=== PATIENT | male | born 1945 | race Caucasian/White ===

== ENCOUNTER → 2016-10-25 | Outpatient (CLI) | payer MEDICARE ==
[~2016-10-25] MED LIST: ASPI81TA11 PO; CENTTAB9 PO; FURO1TAB93 PO; FURO40TA PO; GABA300C3 PO; GABA300C5 PO; METO100T PO; MULTTAB68 PO; PANT40TA3 PO; PROT40TA PO; TAMS0.4C4 PO; VIAG50TA PO; Z.0.OXYGEN INH
--- NOTE | 2016-10-27 09:38 | RSPPFT ---
DATE OF PROCEDURE: 10/25/16 COMMENTS: Spirometry with FVC of 2.1 predicted 4.6, FEV1 of 1.6 predicted 3.0, FEV1/FVC ratio at 76% predicted 66%. Lung volumes show air trapping with RV at 4.5 predicted 2.7. DLCO is 69% of predicted. IMPRESSION: On the basis of the above, patient has an obstructive lung defect with air trapping.
== END ==
LOC: HRSP 12:42
PROVIDERS: ATTEND Internal Medicine Pulmonary Disease
DX: R06.02 Shortness of breath (principal)
CPT/HCPCS: 94060; 94620; 94726; 94729

== ENCOUNTER → 2017-03-29 | Day surgery (SDC) | payer MEDICARE ==
[~2017-03-29] VITALS: Ht 185.4 cm; Wt 168.9 kg
[~2017-03-29] MED LIST changes: +BACITRACIN TOP OINT 15 GM TUBE ONE; +BUPIVACAINE HCL PF 0.25% 30 ML VIAL ONE; +CHLORHEXIDINE GLUCONATE 2 % 1 PACK (2 CLOTHS) TOPICAL PRN; +INSULIN HUMAN REGULAR 1,000 UNITS/10 ML VIAL SQ PRN; +LACTATED RINGER'S 1000 ML IV PRN; +METOPROLOL TARTRATE 25 MG TAB PO PRN; +MIDAZOLAM HCL 5 MG/5 ML VIAL ONE; +POVIDONE IODINE 5% (ANTISEPSIS KIT) 4 APPLICATIONS EACH NARE PRN; +SODIUM CHLORID 0.9% 500 ML IV PRN; +ceFAZolin 2 GM PREMIX 50 ML IV SCH; +fentaNYL CITRATE 250 MCG/5 ML AMP ONE; +oxyCODONE/ACETAMINOPHEN 5 MG/325 MG TAB PO PRN
[2017-03-29 12:02] VITALS: BP 143/85; PULSE 83; RESP 24; TEMP 98.2; O2SAT 95
[2017-03-29 15:45] VITALS: BP 152/94; PULSE 91; RESP 18; TEMP 97.9; O2SAT 95
--- NOTE | 2017-04-02 07:47 | MP ---
cc: ANNETTE BEAULIEU MD DATE OF SURGERY: 03/29/2017. PREOPERATIVE DIAGNOSIS: Phimosis. POSTOPERATIVE DIAGNOSIS: Phimosis. OPERATION: Circumcision. SURGEON: Annette Beaulieu MD. PERTINENT FINDINGS: 1. Significant phimosis noted. 2. Successful circumcision. INDICATIONS FOR THE PROCEDURE / HISTORY OF PRESENT ILLNESS: Elías Lares is a 71-year-old obese male who presents for treatment with circumcision due to significant phimosis with painful erections. The patient has significant past medical history of COPD and high blood pressure as well as morbid obesity for which the procedure was required to be done in the hospital setting. DESCRIPTION OF THE PROCEDURE IN DETAIL: After prior informed consent was obtained, the patient was brought to the operating room and remained supine on the operating room table. The patient was then prepped and draped in the standard sterile fashion. After a proper time out was completed, the penis was then blocked using 0.25% Marcaine with 20 cc as a dorsal penile block. Following this, another 10 cc was administered in a ring block around the patient's penis. At this point, the foreskin was identified to be quite phimotic and therefore a clamp was placed in the dorsal aspect. After adequate clamping, the scissors was used to create a dorsal slit. After a dorsal slit was created, the head of the penis glans was brought through the foreskin. A stitch was then made for retraction. At this point, proximal portions of the penile shaft skin were marked and incision was made with a #15 blade. Careful dissection was carried out to remove the foreskin. At this point, penile shaft hemostasis was ensured. Using 3-0 chromic stitches, the distal and proximal ends of the skin were then brought together. This appeared to be coming together well with complete exposure of the glans and minimal scrotalization to the ventral aspect of the penis. The patient tolerated the procedure well. There were no complications. The incision was then placed with Bacitracin and Xeroform gauze around it. Kerlix was then applied around with Coban. The patient was then taken to the post-anesthesia care unit in good and stable condition. The patient tolerated the procedure well and there were no complications. DISPOSITION: The patient will be discharged home with follow up in clinic in one to two weeks. His dressings may be removed in 24 to 48 hours. Fredy Waters/SALOMÓN /3:20 PM /7:50 AM OLLIE
== END | disposition home or self-care (01) ==
LOC: HSDC 11:06
PROVIDERS: ATTEND Urology
DX: N47.1 Phimosis (principal); I10 Essential (primary) hypertension; J44.9 Chronic obstructive pulmonary disease, unspecified; K21.9 Gastro-esophageal reflux disease without esophagitis; I48.91 Unspecified atrial fibrillation; E66.01 Morbid (severe) obesity due to excess calories; Z68.42 Body mass index [BMI] 45.0-49.9, adult; Z79.82 Long term (current) use of aspirin
CPT/HCPCS: 54150; J0690; J3010; J7120; J2250

== ENCOUNTER 2018-02-15 14:42 | Inpatient (IN) | payer OTHER, MEDICARE ==
[2018-02-15] MEDS ORDERED: SODIUM CHLORIDE 0.9% FLUSH 10 ML FLUSH IVF (15:30)
[2018-02-15 16:22] LABS: APTT (PATIENT) 28.7 SEC (24.3-30.1); INTERNATIONAL NORMALIZED RATIO 1.2 RATIO; PROTHROMBIN TIME - PATIENT 12.3 SEC (9.8-11.6)
[2018-02-15 16:30] LABS: LACTIC ACID SEPSIS PROTOCOL 2.1 mmol/L (0.4-2.0)
[2018-02-15 16:36] LABS: ALBUMIN 3.2 GM/DL (3.4-5.0); ANION GAP 8 MEQ/L (5-15); AST (GOT) 14 U/L (15-37); BICARBONATE 34.5 MEQ/L (21.0-32.0); BLOOD UREA NITROGEN 10 MG/DL (7-18); CALCIUM 8.6 MG/DL (8.5-10.1); CHLORIDE 99 MEQ/L (98-107); CREATININE 0.74 MG/DL (0.60-1.30); GLOMERULAR FILTRATION RATE 104 ML/MIN (>89); GLUCOSE,RANDOM 90 MG/DL (74-106); POTASSIUM 3.9 MEQ/L (3.5-5.1); SODIUM (NA) 141 MEQ/L (136-145)
[2018-02-15 16:37] LABS: AUTOMATED NEUTROPHIL # 5.5 TH/MM3 (1.8-7.7); BASOPHIL # 0.1 TH/MM3 (0-0.2); BASOPHIL % 0.8 % (0.0-2.0); EOSINOPHIL # 0.3 TH/MM3 (0-0.4); EOSINOPHIL % 4.1 % (0.0-4.0); HEMATOCRIT 40.6 % (39.0-51.0); HEMO FLAGS DIFF FINAL; HEMOGLOBIN 13.5 GM/DL (13.0-17.0); LYMPH % 17.4 % (9.0-44.0); LYMPHOCYTE # 1.4 TH/MM3 (1.0-4.8); MEAN CELL VOLUME 104.5 FL (80.0-100.0); MEAN CORPUSCULAR HEMOGLOBIN 34.7 PG (27.0-34.0); MEAN CORPUSCULAR HGB CONC 33.2 % (32.0-36.0); MEAN PLATELET VOLUME 9.3 FL (7.0-11.0); MONO % 10.9 % (0.0-8.0); MONOCYTE # 0.9 TH/MM3 (0-0.9); NEUT % 66.8 % (16.0-70.0); PLATELET COUNT 177 TH/MM3 (150-450); RED BLOOD COUNT 3.88 MIL/MM3 (4.50-5.90); RED CELL DISTRIBUTION WIDTH 13.7 % (11.6-17.2); WHITE BLOOD COUNT 8.2 TH/MM3 (4.0-11.0)
[2018-02-15 16:41] LABS: ALKALINE PHOSPHATASE 82 U/L (45-117); ALT (GPT) 18 U/L (12-78); TOTAL BILIRUBIN ADULT 0.8 MG/DL (0.2-1.0); TOTAL PROTEIN 6.4 GM/DL (6.4-8.2); TROPONIN I 0.03 NG/ML (0.02-0.05)
[2018-02-15 16:43] LABS: CREATINE KINASE 58 U/L (39-308)
[2018-02-15 17:33] LABS: B-TYPE NATRIURETIC PEPTIDE 239 PG/ML (0-100)
[2018-02-15 18:03] LABS: LACTIC ACID GHOST NOT REPORTABLE
[2018-02-15 18:40] LABS: LACTIC ACID SEPSIS REPEAT 1.7 mmol/L (0.4-2.0)
[2018-02-15] MEDS: IOHEXOL 350 MG/ML 10 ML VIAL (for RAD DIAG) IVCONTRAST (18:55)
[2018-02-15] MEDS: FUROSEMIDE 40 MG/4 ML VIAL IV PUSH (19:05)
[2018-02-15 19:50] LABS: BLOOD, URINE MOD (NEG); GLUCOSE,URINE NEG (NEG); KETONE, URINE NEG (NEG); NITRITE,URINE NEG (NEG); URINE COLOR YELLOW (YELLW/STRAW); URINE LEUKOCYTE ESTERASE NEG (NEG)
[2018-02-15 19:59] LABS: BILIRUBIN, URINE NEG (NEG)
[2018-02-15 20:01] LABS: MUCUS URINE FEW /lpf (OCC)
[2018-02-15 20:03] LABS: COMMENT (UR) CATH-CULT NOT IND; CULTURE IF INDICATED CATH CULTURE NOT IND
[2018-02-15] MEDS: PANTOPRAZOLE SODIUM 40 MG VIAL IV PUSH (20:27)
[2018-02-15] MEDS: oxyCODONE/ACETAMINOPHEN 5 MG/325 MG TAB PO (20:27)
[2018-02-15] MEDS ORDERED: SENNOSIDES 8.6 MG TAB PO (22:00)
[2018-02-15] MEDS ORDERED: LACTULOSE SYRUP 20 GM/30 ML CUP PO (22:00)
[2018-02-15] MEDS ORDERED: ACETAMINOPHEN 325 MG TAB PO (22:00)
[2018-02-15] MEDS ORDERED: BISACODYL 10 MG SUPP RECTAL (22:00)
[2018-02-15] MEDS ORDERED: MAGNESIUM HYDROXIDE SUSP 30 ML CUP PO (22:00)
[2018-02-15] MEDS ORDERED: ONDANSETRON HCL 4 MG/2 ML VIAL IVP (22:00)
[2018-02-15] MEDS ORDERED: NALOXONE HCL 0.4 MG/ML AMP IV PUSH (22:00)
[2018-02-15] MEDS ORDERED: LORazepam 2 MG TAB PO (23:30)
[2018-02-15] MEDS ORDERED: FLUMAZENIL 0.5 MG/5 ML VIAL IV PUSH (23:30)
[2018-02-15] MEDS ORDERED: LORazepam 1 MG TAB PO (23:30)
[2018-02-15] MEDS ORDERED: LORazepam 2 MG/ML VIAL IV PUSH ×4 (23:30)
[2018-02-15] MEDS ORDERED: PILL SPLITTER OTHER (23:45)
[2018-02-15] MEDS ORDERED: RESP: ALBUTEROL 2.5 MG/IPRATROPIUM 0.5 MG NEB (PRN) NEB (23:45)
[2018-02-16 00:41] LABS: D-DIMER 0.83 MG/L FEU (0.00-0.50)
[2018-02-16] MEDS: ENOXAPARIN SODIUM 40 MG/0.4 ML SYRINGE SQ ×2 (02:21→20:24)
[2018-02-16 07:56] LABS: AUTOMATED NEUTROPHIL # 5.3 TH/MM3 (1.8-7.7); BASOPHIL % 0.6 % (0.0-2.0); EOSINOPHIL # 0.4 TH/MM3 (0-0.4); EOSINOPHIL % 5.4 % (0.0-4.0); HEMATOCRIT 38.7 % (39.0-51.0); HEMO FLAGS DIFF FINAL; HEMOGLOBIN 12.7 GM/DL (13.0-17.0); LYMPH % 14.7 % (9.0-44.0); LYMPHOCYTE # 1.2 TH/MM3 (1.0-4.8); MEAN CELL VOLUME 105.1 FL (80.0-100.0); MEAN CORPUSCULAR HEMOGLOBIN 34.6 PG (27.0-34.0); MEAN CORPUSCULAR HGB CONC 32.9 % (32.0-36.0); MEAN PLATELET VOLUME 8.9 FL (7.0-11.0); MONO % 10.9 % (0.0-8.0); MONOCYTE # 0.9 TH/MM3 (0-0.9); NEUT % 68.4 % (16.0-70.0); PLATELET COUNT 152 TH/MM3 (150-450); RED BLOOD COUNT 3.68 MIL/MM3 (4.50-5.90); RED CELL DISTRIBUTION WIDTH 13.7 % (11.6-17.2); WHITE BLOOD COUNT 7.8 TH/MM3 (4.0-11.0)
[2018-02-16 08:26] LABS: ANION GAP 8 MEQ/L (5-15); BICARBONATE 33.3 MEQ/L (21.0-32.0); BLOOD UREA NITROGEN 13 MG/DL (7-18); CALCIUM 8.2 MG/DL (8.5-10.1); CHLORIDE 102 MEQ/L (98-107); GLOMERULAR FILTRATION RATE 111 ML/MIN (>89); GLUCOSE,RANDOM 100 MG/DL (74-106); POTASSIUM 3.9 MEQ/L (3.5-5.1); SODIUM (NA) 143 MEQ/L (136-145)
[2018-02-16] MEDS ORDERED: METOPROLOL TARTRATE 25 MG TAB PO ×2 (09:00→21:00)
[2018-02-16] MEDS: FUROSEMIDE 40 MG/4 ML VIAL IV PUSH (09:00)
[2018-02-16] MEDS ORDERED: FUROSEMIDE 40 MG TAB PO (09:00)
[2018-02-16] MEDS: ASPIRIN EC 81 MG TABEC PO (10:22)
[2018-02-16] MEDS: SODIUM CHLORIDE 0.9% FLUSH 10 ML FLUSH IV FLUSH ×2 (10:23→20:23)
[2018-02-16] MEDS: MULTIVITAMIN TAB PO (10:23)
[2018-02-16] MEDS: GABAPENTIN 300 MG CAP PO (10:23)
[2018-02-16] MEDS: METOPROLOL TARTRATE 25 MG TAB PO ×2 (10:58→20:23)
[2018-02-16] MEDS: RESP: ALBUTEROL 2.5 MG/IPRATROPIUM 0.5 MG NEB (SCH) NEB ×3 (12:57→19:39)
[2018-02-16] MEDS: MORPHINE SULFATE 4 MG/ML INJ IV PUSH ×2 (16:01→22:10)
[2018-02-16] MEDS: NYSTATIN 100,000 U/GM PWD 15 GM BTL TOPICAL ×3 (16:01→20:24)
[2018-02-16] MEDS: ALBUMIN 25% INJ 100 ML IV (20:21)
[2018-02-16] MEDS: TAMSULOSIN HCL 0.4 MG CAP PO (20:23)
[2018-02-16] MEDS: FUROSEMIDE 20 MG/2 ML VIAL IV PUSH (20:37)
[2018-02-16] MEDS ORDERED: NYSTATIN 100,000 UNIT/GM CREAM 15 GM TOPICAL (21:00)
[2018-02-17] MEDS: MORPHINE SULFATE 4 MG/ML INJ IV PUSH ×2 (03:26→14:55)
[2018-02-17] MEDS: SODIUM CHLORIDE 0.9% FLUSH 10 ML FLUSH IV FLUSH ×3 (03:26→22:20)
[2018-02-17] MEDS: RESP: ALBUTEROL 2.5 MG/IPRATROPIUM 0.5 MG NEB (SCH) NEB ×4 (04:24→20:49)
[2018-02-17] MEDS: NYSTATIN 100,000 U/GM PWD 15 GM BTL TOPICAL ×3 (06:00→22:20)
[2018-02-17] MEDS: ALBUMIN 25% INJ 100 ML IV ×2 (08:15→17:34)
[2018-02-17] MEDS: MULTIVITAMIN TAB PO (08:15)
[2018-02-17] MEDS: ASPIRIN EC 81 MG TABEC PO (08:15)
[2018-02-17] MEDS: GABAPENTIN 300 MG CAP PO (08:15)
[2018-02-17] MEDS: FUROSEMIDE 20 MG/2 ML VIAL IV PUSH ×2 (09:18→18:17)
[2018-02-17] MEDS: METOPROLOL TARTRATE 25 MG TAB PO ×2 (09:24→22:20)
[2018-02-17] MEDS: methylPREDNISolone SOD SUCC 125 MG/2 ML VIAL IV PUSH ×3 (10:10→22:46)
[2018-02-17 10:44] LABS: AUTOMATED NEUTROPHIL # 6.4 TH/MM3 (1.8-7.7); BASOPHIL % 0.6 % (0.0-2.0); EOSINOPHIL # 0.4 TH/MM3 (0-0.4); EOSINOPHIL % 4.9 % (0.0-4.0); HEMATOCRIT 37.1 % (39.0-51.0); HEMO FLAGS DIFF FINAL; HEMOGLOBIN 12.2 GM/DL (13.0-17.0); LYMPH % 13.8 % (9.0-44.0); LYMPHOCYTE # 1.2 TH/MM3 (1.0-4.8); MEAN CELL VOLUME 105.5 FL (80.0-100.0); MEAN CORPUSCULAR HEMOGLOBIN 34.6 PG (27.0-34.0); MEAN CORPUSCULAR HGB CONC 32.8 % (32.0-36.0); MEAN PLATELET VOLUME 8.9 FL (7.0-11.0); MONO % 7.3 % (0.0-8.0); MONOCYTE # 0.6 TH/MM3 (0-0.9); NEUT % 73.4 % (16.0-70.0); PLATELET COUNT 139 TH/MM3 (150-450); RED BLOOD COUNT 3.52 MIL/MM3 (4.50-5.90); RED CELL DISTRIBUTION WIDTH 13.3 % (11.6-17.2); WHITE BLOOD COUNT 8.7 TH/MM3 (4.0-11.0)
[2018-02-17 11:09] LABS: ANION GAP 4 MEQ/L (5-15); BICARBONATE 36.9 MEQ/L (21.0-32.0); BLOOD UREA NITROGEN 13 MG/DL (7-18); CALCIUM 8.2 MG/DL (8.5-10.1); CHLORIDE 100 MEQ/L (98-107); CREATININE 0.73 MG/DL (0.60-1.30); GLOMERULAR FILTRATION RATE 105 ML/MIN (>89); GLUCOSE,RANDOM 137 MG/DL (74-106); POTASSIUM 3.9 MEQ/L (3.5-5.1); SODIUM (NA) 141 MEQ/L (136-145)
[2018-02-17] MEDS: TAMSULOSIN HCL 0.4 MG CAP PO (22:19)
[2018-02-17] MEDS: ENOXAPARIN SODIUM 40 MG/0.4 ML SYRINGE SQ (22:20)
[2018-02-18] MEDS: RESP: ALBUTEROL 2.5 MG/IPRATROPIUM 0.5 MG NEB (SCH) NEB ×4 (02:44→20:51)
[2018-02-18] MEDS: NYSTATIN 100,000 U/GM PWD 15 GM BTL TOPICAL ×3 (05:37→21:57)
[2018-02-18] MEDS: GABAPENTIN 300 MG CAP PO (08:20)
[2018-02-18] MEDS: MORPHINE SULFATE 4 MG/ML INJ IV PUSH ×4 (08:20→21:57)
[2018-02-18] MEDS: MULTIVITAMIN TAB PO (08:21)
[2018-02-18] MEDS: METOPROLOL TARTRATE 25 MG TAB PO ×2 (08:21→21:55)
[2018-02-18] MEDS: ASPIRIN EC 81 MG TABEC PO (08:21)
[2018-02-18] MEDS: SODIUM CHLORIDE 0.9% FLUSH 10 ML FLUSH IV FLUSH ×2 (08:21→21:57)
[2018-02-18] MEDS: ALBUMIN 25% INJ 100 ML IV ×2 (08:21→17:15)
[2018-02-18 08:54] LABS: ANION GAP 7 MEQ/L (5-15); BICARBONATE 31.5 MEQ/L (21.0-32.0); BLOOD UREA NITROGEN 13 MG/DL (7-18); CALCIUM 8.9 MG/DL (8.5-10.1); CHLORIDE 99 MEQ/L (98-107); CREATININE 0.61 MG/DL (0.60-1.30); GLOMERULAR FILTRATION RATE 130 ML/MIN (>89); GLUCOSE,RANDOM 130 MG/DL (74-106); POTASSIUM 4.2 MEQ/L (3.5-5.1); SODIUM (NA) 137 MEQ/L (136-145)
[2018-02-18] MEDS: FUROSEMIDE 20 MG/2 ML VIAL IV PUSH ×2 (09:33→17:38)
[2018-02-18] MEDS ORDERED: MAGNESIUM HYDROXIDE SUSP 30 ML CUP PO (13:30)
[2018-02-18] MEDS: DOCUSATE SODIUM 100 MG CAP PO ×2 (14:01→21:56)
[2018-02-18] MEDS: TAMSULOSIN HCL 0.4 MG CAP PO (21:55)
[2018-02-18] MEDS: ENOXAPARIN SODIUM 40 MG/0.4 ML SYRINGE SQ (21:57)
[2018-02-19] MEDS: MORPHINE SULFATE 4 MG/ML INJ IV PUSH ×4 (01:07→21:54)
[2018-02-19] MEDS: RESP: ALBUTEROL 2.5 MG/IPRATROPIUM 0.5 MG NEB (SCH) NEB ×4 (03:05→19:48)
[2018-02-19] MEDS: NYSTATIN 100,000 U/GM PWD 15 GM BTL TOPICAL ×3 (05:02→21:54)
[2018-02-19 06:21] LABS: AUTOMATED NEUTROPHIL # 11.9 TH/MM3 (1.8-7.7); BASOPHIL % 0.2 % (0.0-2.0); HEMATOCRIT 37.4 % (39.0-51.0); HEMO FLAGS DIFF FINAL; HEMOGLOBIN 12.3 GM/DL (13.0-17.0); LYMPH % 8.1 % (9.0-44.0); LYMPHOCYTE # 1.1 TH/MM3 (1.0-4.8); MEAN CELL VOLUME 104.2 FL (80.0-100.0); MEAN CORPUSCULAR HEMOGLOBIN 34.3 PG (27.0-34.0); MEAN CORPUSCULAR HGB CONC 32.9 % (32.0-36.0); MEAN PLATELET VOLUME 9.6 FL (7.0-11.0); MONO % 7.4 % (0.0-8.0); NEUT % 84.3 % (16.0-70.0); PLATELET COUNT 146 TH/MM3 (150-450); RED BLOOD COUNT 3.59 MIL/MM3 (4.50-5.90); RED CELL DISTRIBUTION WIDTH 13.5 % (11.6-17.2); WHITE BLOOD COUNT 14.1 TH/MM3 (4.0-11.0)
[2018-02-19 06:39] LABS: ANION GAP 7 MEQ/L (5-15); BICARBONATE 31.9 MEQ/L (21.0-32.0); BLOOD UREA NITROGEN 22 MG/DL (7-18); CALCIUM 8.3 MG/DL (8.5-10.1); CHLORIDE 100 MEQ/L (98-107); CREATININE 0.69 MG/DL (0.60-1.30); GLOMERULAR FILTRATION RATE 112 ML/MIN (>89); GLUCOSE,RANDOM 89 MG/DL (74-106); MAGNESIUM 2.3 MG/DL (1.5-2.5); SODIUM (NA) 139 MEQ/L (136-145)
[2018-02-19 06:40] LABS: POTASSIUM 4.8 MEQ/L (3.5-5.1)
[2018-02-19] MEDS: ALBUMIN 25% INJ 100 ML IV ×2 (08:16→17:06)
[2018-02-19] MEDS: SODIUM CHLORIDE 0.9% FLUSH 10 ML FLUSH IV FLUSH ×2 (08:17→21:48)
[2018-02-19] MEDS: DOCUSATE SODIUM 100 MG CAP PO ×2 (08:57→21:49)
[2018-02-19] MEDS: FUROSEMIDE 20 MG/2 ML VIAL IV PUSH ×2 (08:57→17:29)
[2018-02-19] MEDS: GABAPENTIN 300 MG CAP PO (08:57)
[2018-02-19] MEDS: ASPIRIN EC 81 MG TABEC PO (08:57)
[2018-02-19] MEDS: METOPROLOL TARTRATE 25 MG TAB PO ×2 (08:57→21:49)
[2018-02-19] MEDS: MULTIVITAMIN TAB PO (08:57)
[2018-02-19] MEDS: methylPREDNISolone SOD SUCC 125 MG/2 ML VIAL IV PUSH ×2 (16:54→22:05)
[2018-02-19] MEDS: LORATADINE 10 MG TAB PO (16:58)
[2018-02-19] MEDS: PANTOPRAZOLE SOD 40 MG DELAYED RELEASE TAB PO (16:58)
[2018-02-19] MEDS: TAMSULOSIN HCL 0.4 MG CAP PO (21:49)
[2018-02-19] MEDS: guaiFENesin E.R. 600 MG TAB PO (21:49)
[2018-02-19] MEDS: INSULIN ASPART SUPPLEMENTAL SCALE SQ (21:50)
[2018-02-19] MEDS: ENOXAPARIN SODIUM 40 MG/0.4 ML SYRINGE SQ (21:51)
[2018-02-20] MEDS: RESP: ALBUTEROL 2.5 MG/IPRATROPIUM 0.5 MG NEB (SCH) NEB ×6 (00:04→19:01)
[2018-02-20] MEDS: NYSTATIN 100,000 U/GM PWD 15 GM BTL TOPICAL ×3 (05:01→22:15)
[2018-02-20] MEDS: methylPREDNISolone SOD SUCC 125 MG/2 ML VIAL IV PUSH ×4 (05:01→22:39)
[2018-02-20] MEDS: MORPHINE SULFATE 4 MG/ML INJ IV PUSH (05:01)
[2018-02-20 07:42] LABS: BASOPHIL % 0.1 % (0.0-2.0); HEMATOCRIT 37.5 % (39.0-51.0); HEMO FLAGS DIFF FINAL; HEMOGLOBIN 12.4 GM/DL (13.0-17.0); LYMPHOCYTE # 0.3 TH/MM3 (1.0-4.8); MEAN CELL VOLUME 105.2 FL (80.0-100.0); MEAN CORPUSCULAR HEMOGLOBIN 34.9 PG (27.0-34.0); MEAN CORPUSCULAR HGB CONC 33.2 % (32.0-36.0); MEAN PLATELET VOLUME 9.9 FL (7.0-11.0); MONOCYTE # 0.3 TH/MM3 (0-0.9); NEUT % 92.9 % (16.0-70.0); PLATELET COUNT 135 TH/MM3 (150-450); RED BLOOD COUNT 3.56 MIL/MM3 (4.50-5.90); RED CELL DISTRIBUTION WIDTH 13.4 % (11.6-17.2); WHITE BLOOD COUNT 8.6 TH/MM3 (4.0-11.0)
[2018-02-20 07:50] LABS: ANION GAP 7 MEQ/L (5-15); BICARBONATE 33.7 MEQ/L (21.0-32.0); BLOOD UREA NITROGEN 20 MG/DL (7-18); CALCIUM 8.9 MG/DL (8.5-10.1); CHLORIDE 98 MEQ/L (98-107); CREATININE 0.68 MG/DL (0.60-1.30); GLOMERULAR FILTRATION RATE 114 ML/MIN (>89); GLUCOSE,RANDOM 134 MG/DL (74-106); MAGNESIUM 2.2 MG/DL (1.5-2.5); POTASSIUM 4.2 MEQ/L (3.5-5.1); SODIUM (NA) 139 MEQ/L (136-145)
[2018-02-20] MEDS: INSULIN ASPART SUPPLEMENTAL SCALE SQ ×4 (08:00→22:25)
[2018-02-20] MEDS: guaiFENesin E.R. 600 MG TAB PO ×2 (09:00→22:26)
[2018-02-20] MEDS: PANTOPRAZOLE SOD 40 MG DELAYED RELEASE TAB PO (09:13)
[2018-02-20] MEDS: DOCUSATE SODIUM 100 MG CAP PO ×2 (09:13→22:26)
[2018-02-20] MEDS: LORATADINE 10 MG TAB PO (09:13)
[2018-02-20] MEDS: SODIUM CHLORIDE 0.9% FLUSH 10 ML FLUSH IV FLUSH ×2 (09:13→22:14)
[2018-02-20] MEDS: METOPROLOL TARTRATE 25 MG TAB PO ×2 (09:14→13:15)
[2018-02-20] MEDS: FUROSEMIDE 20 MG TAB PO ×2 (09:14→17:09)
[2018-02-20] MEDS: ASPIRIN EC 81 MG TABEC PO (09:14)
[2018-02-20] MEDS: GABAPENTIN 300 MG CAP PO (09:14)
[2018-02-20] MEDS: MULTIVITAMIN TAB PO (09:15)
[2018-02-20] MEDS: ALBUMIN 25% INJ 100 ML IV (09:25)
[2018-02-20 09:52] LABS: BLOOD GAS BASE EXCESS 8.5 mmol/L (-2-2); BLOOD GAS HCO3 33 mmol/L (22-26); BLOOD GAS METHEMOGLOBIN 0.9 % (0-2); BLOOD GAS O2 HGB SATURATION 90 % (90-100); BLOOD GAS OXYGEN CONTENT 14.9 Vol % (12.0-20.0); BLOOD GAS PCO2 50 mmHg (38-42); BLOOD GAS PO2 65 mmHg (61-120); BLOOD GAS TOTAL HGB 11.8 G/DL (12.0-16.0); TEMP CORR TO 98.6
[2018-02-20 09:53] LABS: CRITICAL VALUE NO; DRAW SITE LT RADIAL; LITER FLOW 4 L/M; NUMBER OF ARTERIAL PUNCTURES 1; OXYGEN DEVICE NASAL CANNULA; STAT NO; ULNAR PULSE PRESENT
[2018-02-20] MEDS: IOHEXOL 350 MG/ML 10 ML VIAL (for RAD DIAG) IVCONTRAST (11:14)
[2018-02-20] MEDS: traMADol HCL 50 MG TAB PO (17:16)
[2018-02-20] MEDS: BUDESONIDE-FORMOTEROL 160/4.5 MCG INHALER INH ×2 (17:17→22:14)
[2018-02-20] MEDS: ENOXAPARIN SODIUM 40 MG/0.4 ML SYRINGE SQ (22:15)
[2018-02-20 22:18] LABS: BLOOD GAS BASE EXCESS 8.2 mmol/L (-2-2); BLOOD GAS CARBOXYHEMOGLOBIN 1.7 % (0-4); BLOOD GAS HCO3 34 mmol/L (22-26); BLOOD GAS METHEMOGLOBIN 0.9 % (0-2); BLOOD GAS O2 HGB SATURATION 94 % (90-100); BLOOD GAS PCO2 67 mmHg (38-42); BLOOD GAS PO2 99 mmHg (61-120); BLOOD GAS TOTAL HGB 12.8 G/DL (12.0-16.0); CRITICAL VALUE YES; TEMP CORR TO 98.6
[2018-02-20 22:19] LABS: DRAW SITE RT RADIAL; FIO2 100 %; LITER FLOW 15 L/M; NUMBER OF ARTERIAL PUNCTURES 1; OXYGEN DEVICE NRB; STAT YES; ULNAR PULSE PRESENT
[2018-02-20] MEDS: TAMSULOSIN HCL 0.4 MG CAP PO (22:26)
[2018-02-20] MEDS: METOPROLOL TARTRATE 50 MG TAB PO (22:26)
[2018-02-20] MEDS: FUROSEMIDE 40 MG/4 ML VIAL IV PUSH (22:38)
[2018-02-20] MEDS: RESP: ALBUTEROL 2.5 MG/IPRATROPIUM 0.5 MG NEB (PRN) NEB (22:38)
[2018-02-21] MEDS: RESP: ALBUTEROL 2.5 MG/IPRATROPIUM 0.5 MG NEB (SCH) NEB ×6 (01:07→20:50)
[2018-02-21 01:48] LABS: BLOOD GAS BASE EXCESS 9.8 mmol/L (-2-2); BLOOD GAS CARBOXYHEMOGLOBIN 1.7 % (0-4); BLOOD GAS HCO3 35 mmol/L (22-26); BLOOD GAS METHEMOGLOBIN 1.1 % (0-2); BLOOD GAS O2 HGB SATURATION 95 % (90-100); BLOOD GAS OXYGEN CONTENT 16.3 Vol % (12.0-20.0); BLOOD GAS PCO2 62 mmHg (38-42); BLOOD GAS PO2 96 mmHg (61-120); BLOOD GAS TOTAL HGB 12.2 G/DL (12.0-16.0); TEMP CORR TO 98.6
[2018-02-21 01:49] LABS: CRITICAL VALUE YES
[2018-02-21 01:51] LABS: DRAW SITE LT RADIAL; FIO2 50 %; NUMBER OF ARTERIAL PUNCTURES 2; OXYGEN DEVICE BIPAP; ULNAR PULSE PRESENT; VENT SETTINGS 15/ 5/50%
[2018-02-21 01:52] LABS: STAT NO
[2018-02-21 04:38] LABS: BLOOD GAS BASE EXCESS 9.7 mmol/L (-2-2); BLOOD GAS CARBOXYHEMOGLOBIN 1.6 % (0-4); BLOOD GAS HCO3 35 mmol/L (22-26); BLOOD GAS METHEMOGLOBIN 0.9 % (0-2); BLOOD GAS O2 HGB SATURATION 90 % (90-100); BLOOD GAS OXYGEN CONTENT 15.6 Vol % (12.0-20.0); BLOOD GAS PCO2 59 mmHg (38-42); BLOOD GAS PO2 69 mmHg (61-120); BLOOD GAS TOTAL HGB 12.3 G/DL (12.0-16.0); TEMP CORR TO 98.6
[2018-02-21 04:39] LABS: CRITICAL VALUE YES; DRAW SITE LT RADIAL; FIO2 50 %; NUMBER OF ARTERIAL PUNCTURES 1; OXYGEN DEVICE BIPAP; STAT NO; ULNAR PULSE PRESENT; VENT SETTINGS 18/5/ 50%
[2018-02-21] MEDS: traMADol HCL 50 MG TAB PO ×2 (05:53→20:07)
[2018-02-21] MEDS: NYSTATIN 100,000 U/GM PWD 15 GM BTL TOPICAL ×3 (05:55→22:00)
[2018-02-21] MEDS: methylPREDNISolone SOD SUCC 125 MG/2 ML VIAL IV PUSH ×2 (05:55→19:52)
[2018-02-21] MEDS: SODIUM CHLORIDE 0.9% FLUSH 10 ML FLUSH IV FLUSH ×3 (05:56→19:53)
[2018-02-21] MEDS: INSULIN ASPART SUPPLEMENTAL SCALE SQ ×4 (08:00→21:00)
[2018-02-21] MEDS: DOCUSATE SODIUM 100 MG CAP PO ×2 (10:14→19:51)
[2018-02-21] MEDS: LORATADINE 10 MG TAB PO (10:14)
[2018-02-21] MEDS: GABAPENTIN 300 MG CAP PO (10:15)
[2018-02-21] MEDS: PANTOPRAZOLE SOD 40 MG DELAYED RELEASE TAB PO (10:15)
[2018-02-21] MEDS: guaiFENesin E.R. 600 MG TAB PO ×2 (10:15→19:51)
[2018-02-21] MEDS: MULTIVITAMIN TAB PO (10:15)
[2018-02-21] MEDS: ASPIRIN EC 81 MG TABEC PO (10:15)
[2018-02-21] MEDS: METOPROLOL TARTRATE 50 MG TAB PO ×2 (10:16→12:43)
[2018-02-21] MEDS: BUDESONIDE-FORMOTEROL 160/4.5 MCG INHALER INH ×2 (10:19→19:53)
[2018-02-21] MEDS: FUROSEMIDE 40 MG/4 ML VIAL IV PUSH ×2 (11:18→17:27)
[2018-02-21] MEDS: MAGNESIUM HYDROXIDE SUSP 30 ML CUP PO (12:45)
[2018-02-21] MEDS: TAMSULOSIN HCL 0.4 MG CAP PO (19:51)
[2018-02-21] MEDS: METOPROLOL TARTRATE 100 MG TAB PO (19:51)
[2018-02-21] MEDS: ENOXAPARIN SODIUM 40 MG/0.4 ML SYRINGE SQ (22:00)
[2018-02-22 05:41] LABS: AUTOMATED NEUTROPHIL # 11.3 TH/MM3 (1.8-7.7); BASOPHIL % 0.1 % (0.0-2.0); HEMATOCRIT 38.7 % (39.0-51.0); HEMO FLAGS DIFF FINAL; HEMOGLOBIN 12.6 GM/DL (13.0-17.0); LYMPH % 4.4 % (9.0-44.0); LYMPHOCYTE # 0.6 TH/MM3 (1.0-4.8); MEAN CORPUSCULAR HEMOGLOBIN 34.3 PG (27.0-34.0); MEAN CORPUSCULAR HGB CONC 32.6 % (32.0-36.0); MEAN PLATELET VOLUME 9.9 FL (7.0-11.0); MONO % 8.4 % (0.0-8.0); MONOCYTE # 1.1 TH/MM3 (0-0.9); NEUT % 87.1 % (16.0-70.0); PLATELET COUNT 159 TH/MM3 (150-450); RED BLOOD COUNT 3.68 MIL/MM3 (4.50-5.90); RED CELL DISTRIBUTION WIDTH 13.6 % (11.6-17.2)
[2018-02-22] MEDS: NYSTATIN 100,000 U/GM PWD 15 GM BTL TOPICAL ×3 (05:43→21:57)
[2018-02-22 06:07] LABS: ANION GAP 5 MEQ/L (5-15); BICARBONATE 38.1 MEQ/L (21.0-32.0); BLOOD UREA NITROGEN 28 MG/DL (7-18); CALCIUM 8.3 MG/DL (8.5-10.1); CHLORIDE 97 MEQ/L (98-107); CREATININE 0.73 MG/DL (0.60-1.30); GLOMERULAR FILTRATION RATE 105 ML/MIN (>89); GLUCOSE,RANDOM 117 MG/DL (74-106); MAGNESIUM 2.5 MG/DL (1.5-2.5); SODIUM (NA) 140 MEQ/L (136-145)
[2018-02-22] MEDS: RESP: ALBUTEROL 2.5 MG/IPRATROPIUM 0.5 MG NEB (SCH) NEB ×2 (07:26→20:00)
[2018-02-22 07:28] LABS: BLOOD GAS BASE EXCESS 12.6 mmol/L (-2-2); BLOOD GAS CARBOXYHEMOGLOBIN 1.7 % (0-4); BLOOD GAS HCO3 39 mmol/L (22-26); BLOOD GAS O2 HGB SATURATION 96 % (90-100); BLOOD GAS OXYGEN CONTENT 16.4 Vol % (12.0-20.0); BLOOD GAS PCO2 72 mmHg (38-42); BLOOD GAS PO2 111 mmHg (61-120); BLOOD GAS TOTAL HGB 12.1 G/DL (12.0-16.0); TEMP CORR TO 98.6
[2018-02-22 07:37] LABS: CRITICAL VALUE YES; OXYGEN DEVICE BiPAP; VENT SETTINGS IPAP 18/EPAP 5
[2018-02-22 07:38] LABS: DRAW SITE RT RADIAL; FIO2 50 %; NUMBER OF ARTERIAL PUNCTURES 1; STAT NO
[2018-02-22] MEDS: INSULIN ASPART SUPPLEMENTAL SCALE SQ ×4 (07:58→21:00)
[2018-02-22] MEDS ORDERED: HEPARIN-NS/PF FLUSH BAG 2,000 ML IV FLUSH (08:34)
[2018-02-22] MEDS ORDERED: MIDAZOLAM HCL 2 MG/2 ML VIAL (08:39)
[2018-02-22] MEDS ORDERED: NITROGLYCERIN INJ 5 ML (08:40)
[2018-02-22] MEDS ORDERED: HEPARIN SODIUM - IV 10,000 UNITS/10 ML VIAL (08:40)
[2018-02-22] MEDS ORDERED: VERAPAMIL HCL 5 MG/2 ML VIAL (08:40)
[2018-02-22] MEDS: MISC INFORMATION XX (10:00)
[2018-02-22] MEDS ORDERED: IOHEXOL 350 MG/ML 100 ML BTL (for Cath Lab) OTHER (10:26)
[2018-02-22] MEDS: GABAPENTIN 300 MG CAP PO (12:46)
[2018-02-22] MEDS: METOPROLOL TARTRATE 100 MG TAB PO ×2 (12:47→21:00)
[2018-02-22] MEDS: guaiFENesin E.R. 600 MG TAB PO ×2 (12:47→21:55)
[2018-02-22] MEDS: LORATADINE 10 MG TAB PO (12:47)
[2018-02-22] MEDS: FUROSEMIDE 40 MG/4 ML VIAL IV PUSH ×2 (12:48→17:08)
[2018-02-22] MEDS: methylPREDNISolone SOD SUCC 125 MG/2 ML VIAL IV PUSH ×2 (12:49→21:55)
[2018-02-22] MEDS: BUDESONIDE-FORMOTEROL 160/4.5 MCG INHALER INH ×2 (12:52→21:56)
[2018-02-22] MEDS: SODIUM CHLORIDE 0.9% FLUSH 10 ML FLUSH IV FLUSH ×2 (12:52→21:56)
[2018-02-22] MEDS: ASPIRIN EC 81 MG TABEC PO (12:57)
[2018-02-22] MEDS: MULTIVITAMIN TAB PO (12:57)
[2018-02-22] MEDS: DOCUSATE SODIUM 100 MG CAP PO ×2 (12:57→21:00)
[2018-02-22] MEDS: PANTOPRAZOLE SOD 40 MG DELAYED RELEASE TAB PO (12:57)
[2018-02-22] MEDS: TAMSULOSIN HCL 0.4 MG CAP PO (21:55)
[2018-02-23] MEDS: traMADol HCL 50 MG TAB PO ×4 (00:31→23:24)
[2018-02-23] MEDS: NYSTATIN 100,000 U/GM PWD 15 GM BTL TOPICAL ×3 (06:00→22:37)
[2018-02-23 06:09] LABS: AUTOMATED NEUTROPHIL # 10.8 TH/MM3 (1.8-7.7); BASOPHIL % 0.1 % (0.0-2.0); HEMATOCRIT 38.5 % (39.0-51.0); HEMOGLOBIN 12.8 GM/DL (13.0-17.0); LYMPH % 3.7 % (9.0-44.0); LYMPHOCYTE # 0.5 TH/MM3 (1.0-4.8); MEAN CELL VOLUME 104.6 FL (80.0-100.0); MEAN CORPUSCULAR HEMOGLOBIN 34.7 PG (27.0-34.0); MEAN CORPUSCULAR HGB CONC 33.1 % (32.0-36.0); MONO % 6.5 % (0.0-8.0); MONOCYTE # 0.8 TH/MM3 (0-0.9); NEUT % 89.7 % (16.0-70.0); PLATELET COUNT 161 TH/MM3 (150-450); RED BLOOD COUNT 3.68 MIL/MM3 (4.50-5.90); RED CELL DISTRIBUTION WIDTH 13.5 % (11.6-17.2); WHITE BLOOD COUNT 12.1 TH/MM3 (4.0-11.0)
[2018-02-23 06:13] LABS: HEMO FLAGS AUTO DIFF
[2018-02-23 06:30] LABS: ANION GAP 7 MEQ/L (5-15); BICARBONATE 36.5 MEQ/L (21.0-32.0); BLOOD UREA NITROGEN 28 MG/DL (7-18); CALCIUM 8.4 MG/DL (8.5-10.1); CHLORIDE 99 MEQ/L (98-107); CREATININE 0.68 MG/DL (0.60-1.30); GLOMERULAR FILTRATION RATE 114 ML/MIN (>89); GLUCOSE,RANDOM 120 MG/DL (74-106); POTASSIUM 4.1 MEQ/L (3.5-5.1); SODIUM (NA) 142 MEQ/L (136-145)
[2018-02-23] MEDS: INSULIN ASPART SUPPLEMENTAL SCALE SQ ×4 (08:00→21:00)
[2018-02-23 08:12] LABS: SCAN/DIFF AUTO DIFF CONFIRMED
[2018-02-23] MEDS: RESP: ALBUTEROL 2.5 MG/IPRATROPIUM 0.5 MG NEB (SCH) NEB ×3 (08:13→19:21)
[2018-02-23] MEDS: DOCUSATE SODIUM 100 MG CAP PO ×2 (09:00→21:00)
[2018-02-23] MEDS: FUROSEMIDE 40 MG/4 ML VIAL IV PUSH ×2 (09:54→17:23)
[2018-02-23] MEDS: methylPREDNISolone SOD SUCC 125 MG/2 ML VIAL IV PUSH (09:54)
[2018-02-23] MEDS: PANTOPRAZOLE SOD 40 MG DELAYED RELEASE TAB PO (09:55)
[2018-02-23] MEDS: METOPROLOL TARTRATE 100 MG TAB PO ×2 (09:55→20:15)
[2018-02-23] MEDS: MULTIVITAMIN TAB PO (09:56)
[2018-02-23] MEDS: guaiFENesin E.R. 600 MG TAB PO ×2 (09:56→20:15)
[2018-02-23] MEDS: ASPIRIN EC 81 MG TABEC PO (09:56)
[2018-02-23] MEDS: LORATADINE 10 MG TAB PO (09:58)
[2018-02-23] MEDS: GABAPENTIN 300 MG CAP PO (09:58)
[2018-02-23] MEDS: BUDESONIDE-FORMOTEROL 160/4.5 MCG INHALER INH ×2 (09:59→22:36)
[2018-02-23] MEDS: SODIUM CHLORIDE 0.9% FLUSH 10 ML FLUSH IV FLUSH ×2 (09:59→22:36)
[2018-02-23] MEDS: APIXABAN 5 MG TABLET PO ×2 (11:51→20:15)
[2018-02-23] MEDS: TAMSULOSIN HCL 0.4 MG CAP PO (20:15)
[2018-02-23] MEDS: predniSONE 20 MG TAB PO (20:15)
[2018-02-24] MEDS: NYSTATIN 100,000 U/GM PWD 15 GM BTL TOPICAL ×3 (06:14→20:22)
[2018-02-24] MEDS: RESP: ALBUTEROL 2.5 MG/IPRATROPIUM 0.5 MG NEB (SCH) NEB ×3 (07:12→19:09)
[2018-02-24] MEDS: INSULIN ASPART SUPPLEMENTAL SCALE SQ ×4 (07:35→20:22)
[2018-02-24] MEDS: PHENOL 1.4% SOLN 180 ML BTL OROPHARYNG ×2 (10:13→17:56)
[2018-02-24] MEDS: ASPIRIN EC 81 MG TABEC PO (10:14)
[2018-02-24] MEDS: METOPROLOL TARTRATE 100 MG TAB PO ×2 (10:14→20:21)
[2018-02-24] MEDS: APIXABAN 5 MG TABLET PO ×2 (10:14→20:21)
[2018-02-24] MEDS: guaiFENesin E.R. 600 MG TAB PO ×2 (10:14→20:21)
[2018-02-24] MEDS: DOCUSATE SODIUM 100 MG CAP PO ×2 (10:14→20:21)
[2018-02-24] MEDS: GABAPENTIN 300 MG CAP PO (10:15)
[2018-02-24] MEDS: LORATADINE 10 MG TAB PO (10:15)
[2018-02-24] MEDS: MULTIVITAMIN TAB PO (10:15)
[2018-02-24] MEDS: PANTOPRAZOLE SOD 40 MG DELAYED RELEASE TAB PO (10:15)
[2018-02-24] MEDS: predniSONE 20 MG TAB PO ×2 (10:15→20:21)
[2018-02-24] MEDS: traMADol HCL 50 MG TAB PO ×2 (10:15→18:06)
[2018-02-24] MEDS: BUDESONIDE-FORMOTEROL 160/4.5 MCG INHALER INH ×2 (10:16→20:23)
[2018-02-24] MEDS: SODIUM CHLORIDE 0.9% FLUSH 10 ML FLUSH IV FLUSH ×2 (10:16→20:22)
[2018-02-24] MEDS: FUROSEMIDE 40 MG TAB PO (17:57)
[2018-02-24] MEDS: TAMSULOSIN HCL 0.4 MG CAP PO (20:21)
[2018-02-25] MEDS: traMADol HCL 50 MG TAB PO (03:41)
[2018-02-25] MEDS: NYSTATIN 100,000 U/GM PWD 15 GM BTL TOPICAL (06:03)
[2018-02-25] MEDS: INSULIN ASPART SUPPLEMENTAL SCALE SQ ×2 (08:00→12:00)
[2018-02-25] MEDS: RESP: ALBUTEROL 2.5 MG/IPRATROPIUM 0.5 MG NEB (SCH) NEB (08:29)
[2018-02-25] MEDS: APIXABAN 5 MG TABLET PO (08:50)
[2018-02-25] MEDS: guaiFENesin E.R. 600 MG TAB PO (08:50)
[2018-02-25] MEDS: METOPROLOL TARTRATE 100 MG TAB PO (08:50)
[2018-02-25] MEDS: DOCUSATE SODIUM 100 MG CAP PO (08:50)
[2018-02-25] MEDS: predniSONE 20 MG TAB PO (08:50)
[2018-02-25] MEDS: FUROSEMIDE 40 MG TAB PO (08:50)
[2018-02-25] MEDS: PANTOPRAZOLE SOD 40 MG DELAYED RELEASE TAB PO (08:50)
[2018-02-25] MEDS: MULTIVITAMIN TAB PO (08:50)
[2018-02-25] MEDS: GABAPENTIN 300 MG CAP PO (08:50)
[2018-02-25] MEDS: LORATADINE 10 MG TAB PO (08:50)
[2018-02-25] MEDS: ASPIRIN EC 81 MG TABEC PO (08:51)
[2018-02-25] MEDS: SODIUM CHLORIDE 0.9% FLUSH 10 ML FLUSH IV FLUSH (08:51)
[2018-02-25] MEDS: BUDESONIDE-FORMOTEROL 160/4.5 MCG INHALER INH (08:57)
== END 2018-02-25 13:55 | DRG 727 ==
LOC: NEPC 14:42 → N04A 02-16 18:26 → NEDA 21:16 → NEPHCDU 21:54
PROC: B2111ZZ Fluoroscopy of Multiple Coronary Arteries using Low Osmolar Contrast (ICD-10-PCS; principal; 2018-02-22 08:14)
PROC: 4A023N7 Measurement of Cardiac Sampling and Pressure, Left Heart, Percutaneous Approach (ICD-10-PCS; 2018-02-22 08:14)
PROC: 5A09357 Assistance with Respiratory Ventilation, Less than 24 Consecutive Hours, Continuous Positive Airway Pressure (ICD-10-PCS; 2018-02-22 08:14)
DX: B37.49 Other urogenital candidiasis (principal); J96.92 Respiratory failure, unspecified with hypercapnia; I47.2 Ventricular tachycardia; J96.11 Chronic respiratory failure with hypoxia; I50.32 Chronic diastolic (congestive) heart failure; I11.0 Hypertensive heart disease with heart failure; I08.3 Combined rheumatic disorders of mitral, aortic and tricuspid valves; I48.0 Paroxysmal atrial fibrillation; K76.0 Fatty (change of) liver, not elsewhere classified; E66.2 Morbid (severe) obesity with alveolar hypoventilation; B35.6 Tinea cruris; Z68.43 Body mass index [BMI] 50.0-59.9, adult; I48.2 Chronic atrial fibrillation; J44.9 Chronic obstructive pulmonary disease, unspecified; R16.2 Hepatomegaly with splenomegaly, not elsewhere classified; Z99.81 Dependence on supplemental oxygen; D75.89 Other specified diseases of blood and blood-forming organs; N50.89 Other specified disorders of the male genital organs; Z96.651 Presence of right artificial knee joint; Z96.643 Presence of artificial hip joint, bilateral; K21.9 Gastro-esophageal reflux disease without esophagitis; H91.90 Unspecified hearing loss, unspecified ear; E78.5 Hyperlipidemia, unspecified; N43.3 Hydrocele, unspecified; F10.20 Alcohol dependence, uncomplicated; I86.1 Scrotal varices; K40.90 Unilateral inguinal hernia, without obstruction or gangrene, not specified as recurrent; R53.1 Weakness; Z98.84 Bariatric surgery status; Z79.82 Long term (current) use of aspirin; Z87.891 Personal history of nicotine dependence; Z91.19 Patient's noncompliance with other medical treatment and regimen
CPT/HCPCS: 36600; 71045; 71046; 71250; 71275; 72193; 74018; 76705; 76870; 80048; 80053; 81001; 82550; 82805; 82948; 83605; 83735; 83880; 84439; 84443; 84484; 85025; 85379; 85610; 85730; 87040; 93005; 93306; 93454; 93975; 94003; 94060; 94640; 94664; 97110-GP; 97116-GP; 97162-GP; 97164-GP; 97530-GP; 99152; 99153

== ENCOUNTER 2018-10-10 12:14 | Observation (INO) ==
--- NOTE | 2018-10-10 12:59 | ED ---
HPI General Chief complaint: Arrhythmia / Palpitations Stated complaint: blood pressure complaint Time Seen by Provider: 10/10/18 12:17 History of Present Illness HPI narrative: This is a 73-year-old male with a history of relation, coronary artery disease, CHF, COPD, GERD, insomnia, obesity, neuropathy, who presents today from the doctor's office for weakness and low blood pressure. Apparently the patient had his metolazone dose change and he was in the office for follow- up. When he arrived at the doctor's office, they were tried to obtain a blood pressure however could not find anything above 80 systolic. Apparently, they tried multiple times and sent him here. The patient reports weakness. He reports chronic shortness of breath. He is on home O2 at 2.5 L 07/05. He did have a 9 pound weight loss when switched over to the new dose of his metolazone. There are no other complaints at the time of my examination. Related Data Home Medications Medication Instructions Recorded Confirmed apixaban [Eliquis] 5 mg PO BID 10/10/18 10/10/18 aspirin 81 mg PO DAILY 10/10/18 10/10/18 carvedilol [Coreg] 12.5 mg PO BID 10/10/18 10/10/18 finasteride 5 mg PO DAILY 10/10/18 10/10/18 furosemide [Lasix] 40 mg PO BID 10/10/18 10/10/18 lisinopril 5 mg PO DAILY 10/10/18 10/10/18 metolazone 5 mg PO DAILY 10/10/18 10/10/18 metoprolol tartrate 100 mg PO DAILY 10/10/18 10/10/18 obujrihc-gzr-NA-lycopen-lutein 1 tab PO DAILY 10/10/18 10/10/18 [Centrum Silver Men] pantoprazole [Protonix] 40 mg PO DAILY 10/10/18 10/10/18 prednisone 10 mg PO TID 10/10/18 10/10/18 spironolactone 12.5 mg PO QAM 10/10/18 10/10/18 tamsulosin [Flomax] 0.8 mg PO DAILY 10/10/18 10/10/18 Allergies Allergy/AdvReac Type Severity Reaction Status Date / Time No Known Allergies Allergy Verified 10/10/18 12:48 Review of Systems ROS: all other systems reviewed are negative Constitutional Denies chills, Denies fever(s) and Reports weight loss (9 pound weight loss over 2 weeks.) Eyes Reports system reviewed and no additional complaints, except as docu ENT Reports system reviewed and no additional complaints, except as docu Cardiovascular Denies chest pain, Reports edema, Reports irregular heart rhythm, Reports dyspnea, Reports orthopnea and Reports paroxysmal nocturnal dyspnea Respiratory Denies chest congestion, Denies cough and Reports dyspnea Gastrointestinal Denies abdominal pain, Denies nausea and Denies vomiting Genitourinary Reports system reviewed and no additional complaints, except as docu Musculoskeletal Reports back pain (Chronic) Neurologic Reports dizziness, Denies headache(s) and Reports sensory deficit (Chronic) [facility] Medical History Medical History Alcohol abuse (Acute) Anxiety (Acute) Atrial fibrillation (Acute) BPH (benign prostatic hyperplasia) (Acute) CHF (congestive heart failure) (Acute) COPD (chronic obstructive pulmonary disease) (Acute) Cardiomyopathy (Acute) Chest pain (Acute) Depression (Acute) Erectile dysfunction (Acute) FH: total knee replacement (Acute) GERD (gastroesophageal reflux disease) (Acute) Mitral regurgitation (Acute) NSVT (nonsustained ventricular tachycardia) (Acute) Obesity (Acute) Oxygen dependent (Acute) Peripheral neuropathy (Acute) Sleep apnea (Acute) Surgical History Surgical History Hx of appendectomy (Acute) S/P LASIK surgery (Acute) Social History Social History Substance History: No History of Abuse Smoking Status: Former smoker Tobacco Type: Cigarettes How Often Do You Have a Drink Containing Alcohol: Never Recent Out of Country Travel within the Last 8 Weeks: No Exam Narrative Exam Narrative: GENERAL: Obese male in mild to moderate respiratory discomfort. SKIN: Focused skin assessment warm/dry. HEAD: Atraumatic. Normocephalic. EYES: No scleral icterus. No injection or drainage. ENT: No nasal bleeding or discharge. Mucous membranes pink and moist. NECK: Trachea midline. No JVD. Supple. CARDIOVASCULAR: Irregularly irregular with a rate in the 70s. No murmur appreciated. RESPIRATORY: No accessory muscle use. Clear to auscultation. Breath sounds equal bilaterally. GASTROINTESTINAL: Abdomen soft, non-tender, nondistended. Hepatic and splenic margins not palpable. MUSCULOSKELETAL: No obvious deformities. No clubbing. No cyanosis. Chronic 3+ edema bilateral lower extremities NEUROLOGICAL: Awake and alert. No obvious cranial nerve deficits. Motor grossly within normal limits. Normal speech. Course Initial Documented Vital Signs Temperature 98.3 F 10/10/18 12:29 Pulse Rate 80 10/10/18 12:29 Respiratory Rate 24 10/10/18 12:29 Blood Pressure 176/137 H 10/10/18 12:29 Pulse Oximetry 97 10/10/18 12:29 Last Documented Vital Signs Temperature 98.3 F 10/10/18 12:29 Pulse Rate 72 10/10/18 14:40 Respiratory Rate 22 10/10/18 14:40 Blood Pressure 76/52 L 10/10/18 14:40 Pulse Oximetry 98 10/10/18 14:40 Medical Decision Making MDM Narrative Medical decision making narrative: This is a 73-year-old male with history of COPD, CHF, any artery disease, cardiomyopathy, hypertension, dyslipidemia, morbid obesity, who presents from the doctor's office with a hypotensive episode. Patient was noted to have blood pressures in the 80s systolic. He recently had his diuretic increased because he had fluid overload. He currently had a 9 pound weight loss over the last week plus. His creatinine has doubled to over 1.5. His BUN is also elevated. His blood pressure was 184/ 88 when he was lying supine. His blood pressure did decrease to 69/43 when he went to sit up. He has been placed back down in a supine position. He is being bolused 500 cc of normal saline. [facility] who will come to see the patient and admit him to the hospital. Medical Screen Exam Complete: Yes Emergency Medical Condition: Yes Differential Diagnosis Differential Diagnosis: Over diuresed versus metabolic derangement versus CHF Lab Data Result diagrams: 10/10/18 13:10 10/10/18 13:10 Lab Results 10/10/18 10/10/18 Range/Units 13:10 13:10 WBC 12.9 H (4.0-11.0) th/mm3 RBC 3.42 L (4.50-5.90) mil/mm3 Hgb 11.8 L (13.0-17.0) gm/dL Hct 34.5 L (39.0-51.0) % MCV 101.1 H (80.0-100.0) fL MCH 34.5 H (27.0-34.0) pg MCHC 34.1 (32.0-36.0) % RDW 13.3 (11.6-17.2) % Plt Count 195 (150-450) th/mm3 MPV 9.3 (7.0-11.0) fL Neut % (Auto) 82.0 H (16.0-70.0) % Lymph % (Auto) 7.0 L (9.0-44.0) % Converse % (Auto) 10.4 H (0.0-8.0) % Eos % (Auto) 0.3 (0.0-4.0) % Baso % (Auto) 0.3 (0.0-2.0) % Neut # (Auto) 10.6 H (1.8-7.7) th/mm3 Lymph # (Auto) 0.9 L (1.0-4.8) th/mm3 Converse # (Auto) 1.3 H (0.0-0.9) th/mm3 Eos # (Auto) 0.0 (0.0-0.4) th/mm3 Baso # (Auto) 0.0 (0.0-0.2) th/mm3 WBC Differential . Differential Comment Auto diff final Sodium 130 L (136-145) meq/L Potassium 4.3 (3.5-5.1) meq/L Chloride 88 L (98-107) meq/L Carbon Dioxide 36.5 H (21.0-32.0) meq/L Anion Gap 6 (5-15) meq/L BUN 45 H (7-18) mg/dL Creatinine 1.87 H (0.60-1.30) mg/dL Estimated GFR 35 L (>89) mL/min Random Glucose 84 (74-106) mg/dL Calcium 7.8 L (8.5-10.1) mg/dL Total Bilirubin 0.7 (0.2-1.0) mg/dL AST 27 (15-37) U/L ALT 23 (12-78) U/L Alkaline Phosphatase 62 (45-117) U/L Total Creatine Kinase 73 (39-308) U/L Troponin I 0.03 (0.02-0.05) ng/mL Total Protein 6.3 L (6.4-8.2) g/dL Albumin 2.8 L (3.4-5.0) g/dL Imaging Data Radiologist's impression: Chest X-Ray 10/10/18 13:12 CONCLUSION: Stable parenchymal changes in both lung bases suggestive of atelectasis. Prominent compensated cardiomegaly. Discharge Plan Discharge Disposition Patient Disposition: ED Admit(ED Internal Use Only) Discharge Order Discharge Orders: ED Use Only Admit Order (Routine); Ordered 10/10/18 Ordered By: Chauncey Nguyen Discharge Details Diagnosis: Orthostatic hypotension, Acute kidney injury, Atrial fibrillation, COPD ( chronic obstructive pulmonary disease), History of chronic congestive heart failure, Morbid obesity Physicians Team ED Provider: Chauncey Nguyen Primary Care Provider: Primary Care KennyiLizzie Rxs /Orders / Referrals /Forms Prescriptions: No Action furosemide [Lasix] 40 mg Tablet 40 mg PO BID RF: 0 carvedilol [Coreg] 25 mg Tablet 12.5 mg PO BID RF: 0 prednisone 10 mg Tablet 10 mg PO TID RF: 0 metoprolol tartrate 100 mg Tablet 100 mg PO DAILY RF: 0 metolazone 5 mg Tablet 5 mg PO DAILY RF: 0 aspirin 81 mg Tablet,Delayed Release (Dr/Ec) 81 mg PO DAILY RF: 0 spironolactone 25 mg Tablet 12.5 mg PO QAM RF: 0 tamsulosin [Flomax] 0.4 mg Capsule 0.8 mg PO DAILY RF: 0 pantoprazole [Protonix] 40 mg Tablet,Delayed Release (Dr/Ec) 40 mg PO DAILY RF: 0 lisinopril 10 mg Tablet 5 mg PO DAILY RF: 0 finasteride 5 mg Tablet 5 mg PO DAILY RF: 0 uovtmiob-qwy-NK-lycopen-lutein [Centrum Silver Men] 300-600-300 mcg Tablet 1 tab PO DAILY RF: 0 apixaban [Eliquis] 5 mg Tablet 5 mg PO BID RF: 0 Status ED Status: With Doctor
--- NOTE | 2018-10-10 13:31 | XR ---
EXAM DATE: 10/10/2018 1:28 PM EST AGE/SEX: 73 years / Male INDICATIONS: Shortness of breath. CLINICAL DATA: This is the patient's initial encounter. Patient reports that signs and symptoms have been present for 1 day and indicates a pain score of Nonresponsive. MEDICAL/SURGICAL HISTORY: None. None. [place] [facility] [place]. . FINDINGS: Stable mild chronic changes in both lung bases suggestive of atelectasis and/or scarring. Otherwise, the lungs are grossly clear. No definite new infiltrates are seen compared to the prior study. The he art size remains diffusely enlarged stable. No evidence of pulmonary edema. The bony structures are g rossly intact. No significant changes are seen compared to the prior exam. CONCLUSION: Stable parenchymal changes in both lung bases suggestive of atelectasis. Prominent compensated cardiomegaly. Electronically signed by: Aristides Dwyer MD Board Certified Radiologist 10/10/2018 1:29 PM EST
[2018-10-10 13:39] LABS: Baso % (Auto) 0.3 % (0.0-2.0); Eos % (Auto) 0.3 % (0.0-4.0); Hematocrit 34.5 % (39.0-51.0); Hemoglobin 11.8 gm/dL (13.0-17.0); Lymph # (Auto) 0.9 th/mm3 (1.0-4.8); Mean Corpuscular HGB Conc 34.1 % (32.0-36.0); Mean Corpuscular Hemoglobin 34.5 pg (27.0-34.0); Mean Corpuscular Volume 101.1 fL (80.0-100.0); Mean Platelet Volume 9.3 fL (7.0-11.0); Mono # (Auto) 1.3 th/mm3 (0.0-0.9); Mono % (Auto) 10.4 % (0.0-8.0); Neut # (Auto) 10.6 th/mm3 (1.8-7.7); Platelet Count 195 th/mm3 (150-450); Red Blood Count 3.42 mil/mm3 (4.50-5.90); Red Cell Distribution Width 13.3 % (11.6-17.2); White Blood Count 12.9 th/mm3 (4.0-11.0)
[2018-10-10 13:58] LABS: Alanine Aminotransferase 23 U/L (12-78); Albumin 2.8 g/dL (3.4-5.0); Alkaline Phosphatase 62 U/L (45-117); Anion Gap 6 meq/L (5-15); Aspartate Aminotransferase 27 U/L (15-37); Blood Urea Nitrogen 45 mg/dL (7-18); Calcium 7.8 mg/dL (8.5-10.1); Carbon Dioxide 36.5 meq/L (21.0-32.0); Chloride 88 meq/L (98-107); Creatine Kinase 73 U/L (39-308); Glomerular Filtration Rate 35 mL/min (>89); Glucose,Random 84 mg/dL (74-106); Potassium 4.3 meq/L (3.5-5.1); Sodium 130 meq/L (136-145); Total Protein 6.3 g/dL (6.4-8.2); Troponin I 0.03 ng/mL (0.02-0.05)
[2018-10-10] MEDS ORDERED: Acetaminophen 325 MG Tablet PO PRN (14:47)
[2018-10-10] MEDS ORDERED: Sodium Chlor 0.9% Inj 500 ML IV.SIG SCH (15:00)
--- NOTE | 2018-10-10 15:15 | P.HPIM ---
History of Present Illness Primary Care Physician: No Primary Care Physician History of Present Illness: Pt is 73 yr old with systolic/diastolic chf, JOANNA, copd, pafib, who was admitted here back in February for severe edema/scrotal edema, afib/rvr. Pt was seen by cardiology on 10/02 and had significant weight gain. his lasix was increased from 40mg bid to 80mg/40mg and metolazone added daily 5mg. Pt had echo on 10/02 which again showed severe LVH, EF 45%, mod MR. He came back today and was dizzy and weak with systolic in 60s at clinic. He was sent here and again found to be orthostatic, volume depleted with hyponatremia and miya. ED started fluid bolus. Pt only complains of buttock pain from sitting on an ED bed which is to small for his size. PMH: systolic/diastolic chf. -echo 10/02. severe LVH, EF 45%, mod MR - Echocardiogram (02/21/18) - EF 35-40% nsvt pafib joanna. noncompliant with cpap obesity copd hx lap band surgery scrotal edema etoh abuse htn bph appe total knee arthroplasty. lasix sh denies current etoh/tob use fh; nc Diagnosis (1) Orthostatic hypotension: (2) Acute kidney injury: (3) Atrial fibrillation: (4) COPD (chronic obstructive pulmonary disease): (5) CHF (congestive heart failure): (6) JOANNA (obstructive sleep apnea): Inpatient Certification Inpatient Certification: I certify that the inpatient services were ordered in accordance with Medicare regulations governing the order. This includes certification that hospital inpatient services are reasonable and necessary and in the case of services not specified as inpatient-only under 42 CFR 419.22(n), that they are appropriately provided as inpatient services in accordance to with the 2-midnight benchmark under 43 CFR 412.3(e) Medications and Allergies Allergies Allergy/AdvReac Type Severity Reaction Status Date / Time No Known Allergies Allergy Verified 10/10/18 12:48 Home Medications Medication Instructions Recorded Confirmed Type apixaban [Eliquis] 5 mg PO BID 10/10/18 10/10/18 History aspirin 81 mg PO DAILY 10/10/18 10/10/18 History carvedilol [Coreg] 12.5 mg PO BID 10/10/18 10/10/18 History finasteride 5 mg PO DAILY 10/10/18 10/10/18 History furosemide [Lasix] 40 mg PO BID 10/10/18 10/10/18 History lisinopril 5 mg PO DAILY 10/10/18 10/10/18 History metolazone 5 mg PO DAILY 10/10/18 10/10/18 History metoprolol tartrate 100 mg PO DAILY 10/10/18 10/10/18 History feirlfvq-tfg-FZ-lycopen-lutein 1 tab PO DAILY 10/10/18 10/10/18 History [Centrum Silver Men] pantoprazole [Protonix] 40 mg PO DAILY 10/10/18 10/10/18 History prednisone 10 mg PO TID 10/10/18 10/10/18 History spironolactone 12.5 mg PO QAM 10/10/18 10/10/18 History tamsulosin [Flomax] 0.8 mg PO DAILY 10/10/18 10/10/18 History Active Medications: Active Medications Acetaminophen (Tylenol) 650 mg PO Q4H PRN PRN Reason: Temp > 100.4 Al Hydroxide/Mg Hydroxide (Milk Of Bess Castro) 30 ml PO Q12H PRN PRN Reason: Mild Constipation Apixaban (Eliquis) 5 mg PO BID [facility] Aspirin (Ecotrin) 81 mg PO DAILY [facility] Sodium Chloride (Ns Inj) 500 mls @ 1,000 mls/hr IV.SIG BOLUS SHARIF Stop: 10/10/18 15:29 Last Admin: 10/10/18 14:26 Dose: 1,000 mls/hr Sodium Chloride (Ns Inj) 1,000 mls @ 80 mls/hr IV.CONT .[id number] [facility] Ondansetron HCl (Zofran Inj) 4 mg IV.PUSH Q6H PRN PRN Reason: NAUSEA OR VOMITING Pantoprazole Sodium (Protonix) 40 mg PO DAILY [facility] Prednisone (Deltasone) 10 mg PO TID [facility] Senna/Docusate Sodium (Mya-Colace) 1 tab PO BID [facility] Sodium Chloride (Ns Flush) 2 ml IV.FLUSH BID SHARIF Sodium Chloride (Ns Flush) 2 ml IV.FLUSH PRN PRN PRN Reason: FLUSH AFTER USING IV ACCESS Physical Exam Vital signs: Last Vital Signs Temp 98.3 F 10/10/18 12:29 Pulse 72 10/10/18 14:40 Resp 22 10/10/18 14:40 BP 76/52 L 10/10/18 14:40 Pulse Ox 98 10/10/18 14:40 Narrative: sitting up in bed heart reg lung scattered wheeze abd obest. nt/bs ext no pitting edema lower ext. Results Labs CBC & Chem 7: 10/10/18 13:10 10/10/18 13:10 Caprini VTE Risk Assessment Caprini VTE Risk Assessment: Moderate/High Risk (score >= 2) Caprini Risk Assessment Model: Point Value = 1 Point Value = 2 Point Value = 3 Point Value = 5 Age 41-60 Minor surgery BMI > 25 kg/m2 Swollen legs Varicose veins or History of unexplained or recurrent spontaneous Oral contraceptives or hormone replacement Sepsis (< 1 month) Serious lung disease, including pneumonia (< 1 month) Abnormal pulmonary function Acute myocardial infarction Congestive heart failure (< 1 month) History of inflammatory bowel disease Medical patient at bed rest Age 61-74 Arthroscopic surgery Major open surgery (> 45 min) Laparoscopic surgery (> 45 min) Malignancy Confined to bed (> 72 hours) Immobilizing plaster cast Central venous access Age >= 75 History of VTE Family history of VTE Factor V Leiden Prothrombin [id number] Lupus anticoagulant Anticardiolipin antibodies Elevated serum homocysteine Heparin-induced thrombocytopenia Other congenital or acquired thrombophilia Stroke (< 1 month) Elective arthroplasty Hip, pelvis, or leg fracture Acute spinal cord injury (< 1 month) Prophylaxis Regimen: Total Risk Factor Score Risk Level Prophylaxis Regimen 0-1 Low Early ambulation 2 Moderate Order ONE of the following: *Sequential Compression Device (SCD) *Heparin 5000 units SQ BID 3-4 Higher Order ONE of the following medications: *Heparin 5000 units SQ TID *Enoxaparin/Lovenox 40 mg SQ daily (WT < 150 kg, CrCl > 30 mL/min) *Enoxaparin/Lovenox 30 mg SQ daily (WT < 150 kg, CrCl > 10-29 mL/min) *Enoxaparin/Lovenox 30 mg SQ BID (WT < 150 kg, CrCl > 30 mL/min) AND/OR *Sequential Compression Device (SCD) 5 or more Highest Order ONE of the following medications: *Heparin 5000 units SQ TID (Preferred with Epidurals) *Enoxaparin/Lovenox 40 mg SQ daily (WT < 150 kg, CrCl > 30 mL/min) *Enoxaparin/Lovenox 30 mg SQ daily (WT < 150 kg, CrCl > 10-29 mL/min) *Enoxaparin/Lovenox 30 mg SQ BID (WT < 150 kg, CrCl > 30 mL/min) AND *Sequential Compression Device (SCD) Assessment and Plan Assessment (1) Orthostatic hypotension: Code(s): I95.1 - Orthostatic hypotension Status: Acute (2) Acute kidney injury: Code(s): N17.9 - Acute kidney failure, unspecified Status: Acute (3) Atrial fibrillation: Code(s): I48.91 - Unspecified atrial fibrillation Status: Chronic (4) COPD (chronic obstructive pulmonary disease): Code(s): J44.9 - Chronic obstructive pulmonary disease, unspecified Status: Chronic (5) CHF (congestive heart failure): Code(s): I50.9 - Heart failure, unspecified Status: Chronic (6) JOANNA (obstructive sleep apnea): Code(s): G47.33 - Obstructive sleep apnea (adult) (pediatric) Status: Chronic Plan 1. Orthostatic hypotension. general weakness. MIYA and hyponatremia. Related to overdiuresis. hold lasix. hold aldactone. stop metolazone hold his lisinipril. hold bb. of note the list shows 2 bb's coreg and lopressor. he was on lopressor for rapid afib but looks like coreg later added for chf. 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 gentle ivf today. recheck bmp in AM monitor bp and recheck orthostatics PT eval. if miya better, bp stable, and able to ambulate then dc tomorrow. telemetry. 2. chronic systolic/diastolic chf. currently not volume overloaded. 3. pafib. anticoagulated 4. htn 5. joanna. noncompliant with cpap. 6. morbid obesity. s/p lapband. 7.copd. o2 dep. and on steroids currently. 8. bph _ (1) Atrial fibrillation Qualifiers: Atrial fibrillation type: chronic Qualified Code(s): I48.2 - Chronic atrial fibrillation (2) COPD (chronic obstructive pulmonary disease) Qualifiers: COPD type: unspecified COPD Chronic bronchitis type: Emphysema type: Qualified Code(s): J44.9 - Chronic obstructive pulmonary disease, unspecified
[2018-10-10] MEDS: Sod Chloride 0.9% Inj 1,000 ML IV.CONT SCH (15:58)
[2018-10-10] MEDS: predniSONE 10 MG Tablet PO SCH (17:55)
--- NOTE | 2018-10-10 20:05 | ECG ---
Date Performed: 10/10/2018 Time Performed: 12:25:22 PTAGE: 73 years EKG: ATRIAL FIBRILLATION WITH CONTROLLED VENTRICULAR RATE NONSPECIFIC ST-T WAVE CHANGES Compared to previous tracing, the patient is no longer tachycardic ABNORMAL RHYTHM ECG PREVIOUS TRACING : 02/21/2018 12.36 DOCTOR: Analia Walter Interpretating Date/Time 10/10/2018 20:04:49
[2018-10-10] MEDS: Senna/Docusate Sodium 8.6/50 MG Tablet PO SCH (22:41)
[2018-10-11] MEDS: Sod Chloride 0.9% Inj 1,000 ML IV.CONT SCH ×2 (04:30→18:58)
[2018-10-11 07:01] LABS: Baso # (Auto) 0.1 th/mm3 (0.0-0.2); Baso % (Auto) 0.6 % (0.0-2.0); Eos # (Auto) 0.1 th/mm3 (0.0-0.4); Eos % (Auto) 0.5 % (0.0-4.0); Hematocrit 33.3 % (39.0-51.0); Hemoglobin 11.5 gm/dL (13.0-17.0); Lymph # (Auto) 1.1 th/mm3 (1.0-4.8); Lymph % (Auto) 8.7 % (9.0-44.0); Mean Corpuscular HGB Conc 34.6 % (32.0-36.0); Mean Corpuscular Hemoglobin 34.8 pg (27.0-34.0); Mean Corpuscular Volume 100.4 fL (80.0-100.0); Mean Platelet Volume 8.9 fL (7.0-11.0); Mono # (Auto) 1.3 th/mm3 (0.0-0.9); Mono % (Auto) 9.7 % (0.0-8.0); Neut # (Auto) 10.5 th/mm3 (1.8-7.7); Neut % (Auto) 80.5 % (16.0-70.0); Platelet Count 178 th/mm3 (150-450); Red Blood Count 3.32 mil/mm3 (4.50-5.90); Red Cell Distribution Width 13.3 % (11.6-17.2)
[2018-10-11 07:23] LABS: Carbon Dioxide 36.4 meq/L (21.0-32.0); Potassium 4.2 meq/L (3.5-5.1)
[2018-10-11] MEDS: predniSONE 10 MG Tablet PO SCH ×3 (09:25→18:58)
[2018-10-11] MEDS: Finasteride 5 MG Tablet PO SCH (09:26)
[2018-10-11] MEDS: Senna/Docusate Sodium 8.6/50 MG Tablet PO SCH ×2 (09:26→20:49)
--- NOTE | 2018-10-11 10:12 | P.PNIM ---
Subjective Interval history: pt in chair. eating breakfast. denies dizziness Physical Exam Vital signs: Last Vital Signs Temp 97.4 F L 10/11/18 08:00 Pulse 90 10/11/18 08:00 Resp 17 10/11/18 08:00 BP 94/55 L 10/11/18 08:00 Pulse Ox 96 10/11/18 09:52 Narrative: sitting in chair heart reg lung improved wheeze abd obest. nt/bs ext no pitting edema lower ext. Results Labs CBC & Chem 7: 10/11/18 06:30 10/11/18 06:30 Assessment and Plan Assessment (1) Orthostatic hypotension: Code(s): I95.1 - Orthostatic hypotension Status: Acute (2) Acute kidney injury: Code(s): N17.9 - Acute kidney failure, unspecified Status: Acute (3) Atrial fibrillation: Code(s): I48.91 - Unspecified atrial fibrillation Status: Chronic (4) COPD (chronic obstructive pulmonary disease): Code(s): J44.9 - Chronic obstructive pulmonary disease, unspecified Status: Chronic (5) CHF (congestive heart failure): Code(s): I50.9 - Heart failure, unspecified Status: Chronic (6) JORGE (obstructive sleep apnea): Code(s): G47.33 - Obstructive sleep apnea (adult) (pediatric) Status: Chronic Plan 1. Orthostatic hypotension. general weakness. MIYA and hyponatremia. Related to overdiuresis. hold lasix. hold aldactone. stop metolazone hold his lisinipril. hold bb. of note the list shows 2 bb's coreg and lopressor. he was on lopressor for rapid afib but looks like coreg later added for chf. gentle ivf monitor bp and recheck orthostatics PT eval. miya/hyponatremia improving. check orthostatics and ambulation with PT if doing well then plan for dc home later today. 2. chronic systolic/diastolic chf. currently not volume overloaded. 3. pafib. anticoagulated 4. htn 5. jorge. noncompliant with cpap. 6. morbid obesity. s/p lapband. 7.copd. o2 dep. and on steroids currently. 8. bph _ (1) Atrial fibrillation Qualifiers: Atrial fibrillation type: chronic Qualified Code(s): I48.2 - Chronic atrial fibrillation (2) COPD (chronic obstructive pulmonary disease) Qualifiers: COPD type: unspecified COPD Chronic bronchitis type: Emphysema type: Qualified Code(s): J44.9 - Chronic obstructive pulmonary disease, unspecified
[2018-10-11] MEDS: Metoprolol Tartrate 50 MG Tablet PO SCH (20:50)
[2018-10-12] MEDS: Sod Chloride 0.9% Inj 1,000 ML IV.CONT SCH (06:02)
[2018-10-12 09:24] VITALS: BP 137/65; RESP 19; TEMP 97.2; O2SAT 96
[2018-10-12] MEDS: Finasteride 5 MG Tablet PO SCH (09:34)
[2018-10-12] MEDS: Senna/Docusate Sodium 8.6/50 MG Tablet PO SCH (09:35)
[2018-10-12] MEDS: predniSONE 10 MG Tablet PO SCH (09:35)
[2018-10-12] MEDS: Metoprolol Tartrate 50 MG Tablet PO SCH (09:35)
[2018-10-12 10:52] LABS: Calcium 8.7 mg/dL (8.5-10.1); Carbon Dioxide 34.9 meq/L (21.0-32.0); Potassium 3.9 meq/L (3.5-5.1)
[2018-10-12 14:45] VITALS: PULSE 90
== END 2018-10-12 12:12 | disposition home or self-care (01) ==
LOC: NEPC 12:14 → INTOOBSV 14:56 → NEDA 15:02 → N04 15:49
PROVIDERS: ADMIT Hospitalist; ATTEND Hospitalist
DX: I25.10 Atherosclerotic heart disease of native coronary artery without angina pectoris; Z68.43 Body mass index [BMI] 50.0-59.9, adult; G62.9 Polyneuropathy, unspecified; Z79.01 Long term (current) use of anticoagulants; I47.2 Ventricular tachycardia; G47.33 Obstructive sleep apnea (adult) (pediatric); Z96.659 Presence of unspecified artificial knee joint; Z90.49 Acquired absence of other specified parts of digestive tract; Z99.81 Dependence on supplemental oxygen; I34.0 Nonrheumatic mitral (valve) insufficiency; N17.9 Acute kidney failure, unspecified; F17.210 Nicotine dependence, cigarettes, uncomplicated; E87.1 Hypo-osmolality and hyponatremia; I95.1 Orthostatic hypotension; I11.0 Hypertensive heart disease with heart failure; N50.89 Other specified disorders of the male genital organs; Z79.82 Long term (current) use of aspirin; K21.9 Gastro-esophageal reflux disease without esophagitis; Z91.19 Patient's noncompliance with other medical treatment and regimen; I48.2 Chronic atrial fibrillation; E66.01 Morbid (severe) obesity due to excess calories; I50.42 Chronic combined systolic (congestive) and diastolic (congestive) heart failure; I42.9 Cardiomyopathy, unspecified; J44.9 Chronic obstructive pulmonary disease, unspecified; F41.9 Anxiety disorder, unspecified; N40.0 Benign prostatic hyperplasia without lower urinary tract symptoms; F10.10 Alcohol abuse, uncomplicated
CPT/HCPCS: 71010; 71045; 80048; 80053; 82550; 84484; 85025; 93005; 96360; 96361; 97162; 99285; G0378; G8987; G8988; J7030; J7040; J7506; J7512